=== PATIENT | female | born 1990 | race Caucasian/White ===

== ENCOUNTER 2019-06-16 17:52 | Emergency (ER) | payer OTHER ==
[~2019-06-16] VITALS: Ht 177.8 cm; Wt 133.8 kg
[~2019-06-16 17:52] MED LIST: AMOXICILLIN 50500 M1 PO; BENADRYL25 MG PO; BENTYL 10 MG CA10 M1; COMPAZINE10 M1; CYMBALTA30 MG PO; DOXYCYCLINE 10100 MG PO; FLOMAX0.4 MG PO; HYOSCYAMINE0.125 M1 SL; IBUPROFEN 800800 M1 PO; IBUPROFEN 800800 MG PO; IMITREX 25 MG T25 MG; LIDOCAINE VISC100 M1 MM; MELATONIN3 MG PO; MIGRANOW KIT50 MG MC; NAPROSYN375 MG PO; NOHOMEMEDICATIONS; OMEPRAZOLE10 MG PO; PAMELOR50 MG PO; PERCOCET 7.5-31 EACH PO; PERCOCET PO; PHENERGAN 25 MG25 M1 PO; PREDNISONE 10 M10 M1 PO; TESSALON PERLE100 MG PO; TESSALON200 MG PO; TORADOL 10 MG T10 MG PO; ULTRAM 50MG TAB50 MG PO; ZOFRAN ODT4 MG PO; ZPAK PO
[2019-06-16] MEDS ORDERED: HYDROCODON-ACE1 EAC7 PO (18:33)
[2019-06-16] MEDS ORDERED: ZOFRAN4 MG PO (18:33)
== END 2019-06-16 19:35 | disposition home or self-care (01) ==
LOC: M.ERS 17:52
DX: G43.909 Migraine, unspecified, not intractable, without status migrainosus (principal); R11.0 Nausea; Z88.5 Allergy status to narcotic agent; Z79.899 Other long term (current) drug therapy; Z87.442 Personal history of urinary calculi; Z90.89 Acquired absence of other organs

== ENCOUNTER 2019-12-03 15:50 | Emergency (ER) | payer OTHER ==
[~2019-12-03] VITALS: Ht 177.8 cm; Wt 117.9 kg
[~2019-12-03 15:50] MED LIST changes: +HYDROCODON-ACE1 EAC7 PO; +ZOFRAN4 MG PO
[2019-12-03] MEDS ORDERED: AMOXICILLIN 50500 MG PO (16:17)
[2019-12-03] MEDS ORDERED: PHENERGAN 25 MG25 M1 PO (16:17)
[2019-12-03 18:10] VITALS: BP 122/64
== END 2019-12-03 18:10 | disposition home or self-care (01) ==
LOC: M.ERS 15:50
DX: G43.009 Migraine without aura, not intractable, without status migrainosus (principal); H66.91 Otitis media, unspecified, right ear; M79.7 Fibromyalgia; Z87.442 Personal history of urinary calculi; Z90.89 Acquired absence of other organs; Z88.5 Allergy status to narcotic agent

== ENCOUNTER 2020-02-04 13:00 | Emergency (ER) | payer OTHER ==
[~2020-02-04] VITALS: Ht 167.6 cm; Wt 115.7 kg
[~2020-02-04 13:00] MED LIST changes: +AMOXICILLIN 50500 MG PO
[2020-02-04 13:36] LABS: URINE BILIRUBIN NEGATIVE (Negative); URINE BLOOD 3+ (Negative); URINE CLARITY CLEAR; URINE COLOR YELLOW; URINE GLUCOSE-RANDOM NEGATIVE (Negative); URINE KETONES NEGATIVE (Negative); URINE LEUKOCYTES-REFLEX NEGATIVE (Negative); URINE NITRITE-REFLEX NEGATIVE (Negative); URINE PROTEIN NEGATIVE (Negative); URINE UROBILINOGEN 0.2 E.U./dl (0.2-1.0)
[2020-02-04 13:42] LABS: ABSOLUTE BASOPHILS 0.1 thou/uL (0.0-0.2); ABSOLUTE EOSINOPHILS 0.1 thou/uL (0.0-0.7); ABSOLUTE LYMPHOCYTES 1.6 thou/uL (0.8-5.3); ABSOLUTE MONOCYTES 0.7 thou/uL (0.0-1.2); ABSOLUTE NEUTROPHILS 11.1 thou/uL (1.6-8.1); BASOPHILS 0.9 %; EOSINOPHILS 0.5 %; HEMATOCRIT 35.4 % (37.0-47.0); HEMOGLOBIN 11.5 gm/dL (12.0-15.0); LYMPHOCYTES 11.8 %; MCH 26.5 pg (26.0-34.0); MCHC 32.4 g/dL (28.0-37.0); MCV 81.7 fL (80.0-100.0); MONOCYTES 5.2 %; MPV 7.7 fl. (7.2-11.1); NUCLEATED RBCS 0 /100WBC; PLATELET COUNT* 392 thou/uL (150-400); POLYS 81.6 %; RBC 4.33 mil/uL (4.20-5.00); RDW-CV 15.4 % (10.5-14.5); WBC 13.6 thou/uL (4.0-11.0)
[2020-02-04 13:54] LABS: CALCIUM 8.8 mg/dL (8.5-10.1); CREATININE 1.3 mg/dL (0.6-1.3); POTASSIUM 4.4 mmol/L (3.5-5.1)
[2020-02-04 14:01] LABS: ALBUMIN 3.2 g/dL (3.4-5.0); TOTAL BILIRUBIN 0.2 mg/dL (<0.1-1.0); TOTAL PROTEIN 7.3 g/dL (6.4-8.2)
[2020-02-04 14:09] LABS: BACTERIA-REFLEX 1-9 Few /HPF (None Seen); CASTS None Seen /LPF (None Seen); CRYSTALS None Seen /LPF (None Seen); MUCUS 0-3 Light strn/LPF (None Seen); SQUAMOUS 0-3 Few /LPF (0-3); URINE WBC-REFLEX 0-5 Rare /HPF (0-5)
[2020-02-04] MEDS ORDERED: BACTRIM DS TAB1 EAC1 PO (14:51)
[2020-02-04] MEDS ORDERED: NORCO 5-325 TA1 EAC1 PO (14:51)
[2020-02-04] MEDS ORDERED: ONDANSETRON HCL4 M3 PO (14:51)
[2020-02-04] MEDS ORDERED: FLOMAX0.4 MG PO (14:51)
[2020-02-04 15:03] VITALS: BP 150/94
== END 2020-02-04 15:04 | disposition home or self-care (01) ==
LOC: M.ERS 13:00
PROVIDERS: Physician Assistant
DX: N20.0 Calculus of kidney (principal); K58.9 Irritable bowel syndrome, unspecified; M79.7 Fibromyalgia; G43.909 Migraine, unspecified, not intractable, without status migrainosus; Z90.49 Acquired absence of other specified parts of digestive tract; Z87.442 Personal history of urinary calculi; Z88.6 Allergy status to analgesic agent